=== PATIENT | male | born 1985 | race Caucasian/White ===

== ENCOUNTER 2017-02-09 20:11 | Day surgery (SDC) | payer SELFPAY ==
[~2017-02-09 20:11] MED LIST: ADRENALIN ONE; CALCIUM CHLORIDE IV ONE; NACL 0.9% 1000 ML 2,000 ML IV ONE; SODIUM BICARBONATE IV ONE
[2017-02-09] MEDS ORDERED: D5/0.45NS 1,000 ML IV SCH (20:25)
[2017-02-09] MEDS ORDERED: NACL 0.9% 1000 ML 3,000 ML IV ONE (20:25)
[2017-02-09] MEDS ORDERED: LACTATED RINGERS 1,000 ML IV SCH ×2 (20:35→21:00)
[2017-02-09 21:31] LABS: Mean Corpuscular HGB Conc 30 % (32-34); Mean Corpuscular Hemoglobin 30 pg (28-32); Mean Corpuscular Volume 100 fl (84-94); Red Blood Count 1.24 M/mm3 (3.65-5.03); Red Cell Distribution Width 17.1 % (13.2-15.2); White Blood Count 2.8 K/mm3 (4.5-11.0)
[2017-02-09] MEDS ORDERED: ADRENALIN ONE (21:32)
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
[2017-02-09 21:34] LABS: Hematocrit 12.3 % (35.5-45.6); Platelet Count 44 K/mm3 (140-440)
[2017-02-09 21:35] LABS: Hemoglobin 3.6 gm/dl (11.8-15.2)
[2017-02-09 21:39] LABS: Anion Gap 18 mmol/L; BUN/Creatinine Ratio 23.33; Blood Urea Nitrogen 7 mg/dL (9-20); Carbon Dioxide 10 mmol/L (22-30); Chloride 132.7 mmol/L (98-107); Glucose 47 mg/dL (75-100); Sodium 158 mmol/L (137-145)
[2017-02-09] MEDS ORDERED: VERSED ONE (21:41)
[2017-02-09 21:42] LABS: Alanine Aminotransferase 5 units/L (7-56); Albumin 0.8 g/dL (3.9-5); Alkaline Phosphatase 15 units/L (35-129); Bilirubin,Total < 0.20 mg/dL (0.1-1.2)
[2017-02-09] MEDS ORDERED: ZEMURON IV ONE (21:45)
[2017-02-09 21:53] LABS: Bilirubin,Direct < 0.2 mg/dL (0-0.2)
[2017-02-09] MEDS ORDERED: NEO SYNEPHRINE/NS Syringe(OR USE) IV ONE (22:00)
[2017-02-09] MEDS ORDERED: LEVOPHED DRIP 4 MG/NS 250 ML IV ONE (22:00)
[2017-02-09] MEDS ORDERED: INTROPIN DRIP 800 MG/D5W 250 ML IV ONE (22:00)
[2017-02-09] MEDS ORDERED: ACD-A 500 ML IV ONE (22:12)
[2017-02-09 22:13] LABS: Partial Thromboplastin Time 226.9 Sec. (24.2-36.6)
[2017-02-09 22:14] LABS: INR 10.71 (0.87-1.13)
[2017-02-09 22:19] LABS: Potassium 2.8 mmol/L (3.6-5.0)
[2017-02-09] MEDS ORDERED: VERSED IV ONE (22:19)
[2017-02-09 22:20] LABS: Calcium 3.4 mg/dL (8.4-10.2)
[2017-02-09 22:24] LABS: Basophils % (Manual) 0 % (0.0-1.8); Blastocytes % (Manual) 0 %; Eosinophils % (Manual) 0 % (0.0-4.3)
[2017-02-09 22:27] LABS: Anisocytosis 2+
[2017-02-09 22:28] LABS: Diff Status Complete; Hypochromasia 3+; Platelet Estimate Appears Decreased
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
[2017-02-10 00:21] VITALS: BP 59/34
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
--- NOTE | 2017-02-10 06:04 | Admit Criteria Form ---
Admission Criteria Documentation: HEMODYNAMIC INSTABILITY Clinical Indications for Inpatient Care ([place]/check or initial the applicable condition/criteria) Ongoing inpatient care may be indicated for hemodynamic instability as indicated by 1 or more of the following(1)(2)(3)(4)(10)(16)(17)(18)(19(32)(35): [X ]I) New hypotension [ ]II) Symptomatic Tachycardia or Bradycardia unresponsive to treatment (eg analgesia, fluids [ ]III) Inadequate perfusion as indicated by 1 or more of the following: [ ]a) Lactic acidosis, with lactic acid greater than 18 mg/dL (2 mmol/ L) or base excess < -5mEq/L(36) [ ]b) New abnormal capillary refill (longer than 3 seconds) [ ]c) Altered mental status that is severe or persistent [ ]d) Reduced urine output [ ]lV) Orthostatic vital sign changes that are symptomatic and unresponsive to treatment (eg, fluids) (37)(38) [ ]V) Marked hemodynamic change from baseline (eg, SBP 20 mm Hg below patient' s usual pressure) [ ]Vl) IV inotropic or vasopressor medication required(39) Extended stay beyond goal length of stay for primary condition may be needed until ALL of the following are present(1)(2)(3)(4)(10)(16)(17): [ ]a) Heart rate > 60 and < 100 beats per minute or patient is clinically stable at current rate (eg, baseline) [ ]b) SBP >100 mm Hg and <160 mm Hg or patient is clinically stable at current pressure (eg, baseline) [ ]c) DBP greater than 50 mm Hg and less than 100 mm Hg or patient is clinically stable at current pressure (eg, baseline) [ ]d) Urine output greater than 0.5 mL/kg per hour [ ]e) Room air oxygen saturation 90% or greater or at baseline [ ]f) Orthostatic vital sign changes absent, asymptomatic, at baseline, or manageable at lower level of care[B] [ ]g) Medical comorbidities manageable at lower level of care The original [employer] [facility] content created by Jessica [employer] has been revised. The portions of the content which have been revised are identified through the use of italic text or in bold, and Jessica Thibodeaux has neither reviewed nor approved the modified material. All other unmodified content is copyright [facility]. Please see references footnoted in the original [facility] edition 2017 Admission Criteria Met: Yes
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
== END 2017-02-09 21:31 | disposition home or self-care (01) ==
LOC: ED 20:11 → OR 21:30
PROVIDERS: ATTEND Surgery
DX: S31.103A Unspecified open wound of abdominal wall, right lower quadrant without penetration into peritoneal cavity, initial encounter (principal); S36.539A Laceration of unspecified part of colon, initial encounter; S36.439A Laceration of unspecified part of small intestine, initial encounter; S25.20XA Unspecified injury of superior vena cava, initial encounter; D64.89 Other specified anemias; I46.9 Cardiac arrest, cause unspecified; W34.00XA Accidental discharge from unspecified firearms or gun, initial encounter; Y93.89 Activity, other specified; Y92.89 Other specified places as the place of occurrence of the external cause; Y99.8 Other external cause status
CPT/HCPCS: 36415; 49000; 71010; 74000; 80048; 80074; 85007; 85025; 85610; 85730; 86850; 86900; 86901; 86920; J0171; J1265; J2250; J2370; J7120; P9016; P9017